=== PATIENT | male | born 1980 | race Hispanic/Latino ===

== ENCOUNTER 2019-10-11 19:24 | Inpatient (IN) | payer OTHER ==
[~2019-10-11] VITALS: Ht 180.3 cm; Wt 115.3 kg
[~2019-10-11 19:24] MED LIST: ERGOCALCIFEROL (VITAMIN D2) 50,000 UNIT CAPSULE PO SCH
[2019-10-11] MEDS ORDERED: ONDANSETRON HCL 4 MG/2 ML VIAL ONE (19:49)
[2019-10-11] MEDS ORDERED: ACETAMINOPHEN EXTRA STRENGTH 500 MG TABLET ONE (19:49)
[2019-10-11] MEDS ORDERED: SODIUM CHLORIDE 0.9% 1000ML 1,000 ML IV ONE (19:50)
[2019-10-11 20:01] LABS: BASOPHILS % (AUTO) 0.2 % (0.0-5.0); HEMATOCRIT 50.9 % (42-54); LYMPHOCYTES % (AUTO) 31.9 % (21.0-51.0); MEAN CORPUSCULAR HGB CONC 35.8 g/dL (32.0-36.0); MEAN CORPUSCULAR VOLUME 81.1 fL (79-99); MONOCYTES % (AUTO) 9.3 % (3.0-13.0); NEUTROPHILS % (AUTO) 58.2 % (40.0-77.0); PLATELET COUNT (AUTO) 179 K/uL (130-400); RED BLOOD CELL COUNT(AUTO) 6.28 MIL/uL (4.50-6.20); RED CELL DISTRIBUTION WIDTH 11.8 % (11.0-15.5); WHITE BLOOD COUNT (AUTO) 4.7 K/uL (4.8-10.8)
[2019-10-11 20:12] LABS: CREATININE 0.8 mg/dL (0.5-1.5); POTASSIUM 3.7 mmol/L (3.5-5.1)
[2019-10-11 20:17] LABS: ALBUMIN 3.7 g/dL (3.5-5.0); BILIRUBIN,TOTAL 0.6 mg/dL (0.2-1.0); TOTAL PROTEIN, SERUM 8.2 g/dL (6.0-8.3)
[2019-10-11] MEDS ORDERED: AZITHROMYCIN 500MG+NS 250ML 250 ML IV ONE (21:28)
[2019-10-11] MEDS ORDERED: DEXAMETHASONE SOD PHOSPHATE 10MG/ML 1ML VIAL ONE (21:28)
[2019-10-11] MEDS ORDERED: CEFTRIAXONE SODIUM 1 GM ONE (21:28)
[2019-10-11] MEDS: CEFTRIAXONE SODIUM 1 GM IVP SCH (23:15)
[2019-10-11] MEDS ORDERED: DOXYCYCLINE 100MG+NS 250ML IV SCH (23:15)
[2019-10-11] MEDS ORDERED: HYDRALAZINE HCL 20 MG/ML VIAL IV PRN (23:15)
[2019-10-11] MEDS ORDERED: ERGOCALCIFEROL (VITAMIN D2) 50,000 UNIT CAPSULE ONE (23:50)
[2019-10-12] VITALS (7 sets, daily range): BP systolic 106–131; BP diastolic 50–78
--- NOTE | 2019-10-12 04:22 | NUR ---
END OF SHIFT NOTE PATIENT RESTING COMFORTABLY ON 2L NASAL CANNULA SATTING AT 100%. NO SIGNS OR SYMPTOMS OF RESPIRATORY DISTRESS AT THIS TIME. PATIENT STATES HE FEELS MUCH BETTER NOW THATHIS TEMPERATURE IS DOWN RI 98 DEGREES. WILL CONTINUE TO MONITOR.
[2019-10-12 06:01] LABS: HEMOGLOBIN A1C 9.7 % (4.0-6.0)
[2019-10-12] MEDS: CEFTRIAXONE SODIUM 1 GM IVP SCH ×2 (06:30→12:06)
[2019-10-12] MEDS: INSULIN HUMULIN R 100 UNIT/ML 3ML SQ SCH ×4 (06:32→21:29)
[2019-10-12] MEDS: ASCORBIC ACID 500 MG TAB PO SCH (09:07)
[2019-10-12] MEDS: FAMOTIDINE/PF 20 MG/2 ML VIAL IV SCH ×2 (09:07→21:27)
[2019-10-12] MEDS: ZINC SULFATE 220 CAPSULE PO SCH (09:07)
[2019-10-12] MEDS: METHYLPREDNISOLONE SOD SUCC 40MG/ML 1ML IVP SCH ×2 (09:07→15:03)
[2019-10-12] MEDS: ACETYLCYSTEINE 600 MG CAPSULE PO SCH ×2 (09:07→21:27)
[2019-10-12] MEDS: DOXYCYCLINE 100MG+NS 250ML 250 ML IV SCH ×2 (09:08→21:27)
[2019-10-12] MEDS: ENOXAPARIN SODIUM 40 MG/0.4 ML SYRINGE SQ SCH (09:08)
--- NOTE | 2019-10-12 14:05 | NUR ---
DC PLAN CALLED PATIENT. IN COVID UNIT POSITIVE. PATIENT LIVES WITH PARENTS. INDEPENDENT ABLE TO PERFORM ADL'S. NO SERVICES OR DME'S. FEELS SAFE TO RETURN HOME. Addendum: 10/12/19 at 1406 by YOSVANY GARAY RN CM Amended: Links added.
[2019-10-12] MEDS: ACETAMINOPHEN EXTRA STRENGTH 500 MG TABLET PO PRN ×2 (15:50→21:52)
[2019-10-12] MEDS ORDERED: PHARMACY COMMUNICATION MISC SCH (16:00)
[2019-10-12] MEDS ORDERED: COMPOUND IV REFRIGERATED 1 EACH IVSOLN MISC PRN (17:45)
[2019-10-12] MEDS ORDERED: REMDESIVIR (EUA) 520 200 MG in SODIUM CHLORIDE 0.9% 250 ML IV ONE (19:00)
[2019-10-12] MEDS ORDERED: METFORMIN HCL 500 MG TABLET ONE (21:20)
[2019-10-12] MEDS: INSULIN GLARGINE 100 UNITS/ML 10 ML VIAL SQ SCH (21:28)
[2019-10-12] MEDS ORDERED: SODIUM CHLORIDE 0.9% 250 ML IV ONE (23:48)
[2019-10-13 03:18] VITALS: BP 115/56
[2019-10-13 06:05] LABS: BASOPHILS % (AUTO) 0.1 % (0.0-5.0); EOSINOPHILS % (AUTO) 1.7 % (0.0-8.0); HEMATOCRIT 46.5 % (42-54); LYMPHOCYTES % (AUTO) 17.4 % (21.0-51.0); MEAN CORPUSCULAR HEMOGLOBIN 28.7 pg (27.0-33.0); MEAN CORPUSCULAR HGB CONC 35.3 g/dL (32.0-36.0); MEAN CORPUSCULAR VOLUME 81.4 fL (79-99); MONOCYTES % (AUTO) 8.3 % (3.0-13.0); NEUTROPHILS % (AUTO) 72.2 % (40.0-77.0); PLATELET COUNT (AUTO) 205 K/uL (130-400); RED BLOOD CELL COUNT(AUTO) 5.71 MIL/uL (4.50-6.20); RED CELL DISTRIBUTION WIDTH 11.9 % (11.0-15.5)
[2019-10-13 06:17] LABS: CREATININE 0.7 mg/dL (0.5-1.5); CRP QUANTITATIVE 35.8 mg/L (0.00-9.0); POTASSIUM 3.8 mmol/L (3.5-5.1)
[2019-10-13] MEDS: INSULIN HUMULIN R 100 UNIT/ML 3ML SQ SCH ×4 (06:48→22:21)
[2019-10-13 08:00] VITALS: BP 121/68
[2019-10-13] MEDS: METFORMIN HCL 500 MG TABLET PO SCH ×3 (09:00→16:56)
[2019-10-13] MEDS: ENOXAPARIN SODIUM 40 MG/0.4 ML SYRINGE SQ SCH (09:00)
[2019-10-13] MEDS: ASCORBIC ACID 500 MG TAB PO SCH (09:00)
[2019-10-13] MEDS: ZINC SULFATE 220 CAPSULE PO SCH (09:00)
[2019-10-13] MEDS: DEXAMETHASONE 4 MG TAB PO SCH (09:00)
[2019-10-13] MEDS: CEFTRIAXONE SODIUM 1 GM IVP SCH ×2 (09:00→22:15)
[2019-10-13] MEDS: GLIPIZIDE XL 2.5MG TAB PO SCH ×2 (09:00→16:56)
[2019-10-13] MEDS: DOXYCYCLINE 100MG+NS 250ML 250 ML IV SCH ×2 (09:00→22:15)
[2019-10-13] MEDS: FAMOTIDINE/PF 20 MG/2 ML VIAL IV SCH ×2 (09:00→22:14)
[2019-10-13] MEDS: ACETYLCYSTEINE 600 MG CAPSULE PO SCH ×2 (09:00→22:15)
[2019-10-13 11:30] VITALS: BP 103/56
[2019-10-13] MEDS: ACETAMINOPHEN EXTRA STRENGTH 500 MG TABLET PO PRN ×2 (11:49→22:22)
[2019-10-13 15:30] VITALS: BP 112/59
[2019-10-13] MEDS ORDERED: REMDESIVIR (EUA) 520 100 MG VIAL IV ONE (18:37)
[2019-10-13] MEDS: REMDESIVIR (INVESTIGATIONAL) 100 MG in SODIUM CHLORIDE 0.9% 250 ML IV SCH (18:40)
[2019-10-13] MEDS: REMDESIVIR (EUA) 520 100 MG in SODIUM CHLORIDE 0.9% 250 ML IV SCH (19:00)
[2019-10-13 19:35] VITALS: BP 113/64
[2019-10-13] MEDS: INSULIN GLARGINE 100 UNITS/ML 10 ML VIAL SQ SCH (22:21)
[2019-10-13 23:08] VITALS: BP 118/70
[2019-10-14] MEDS: METFORMIN HCL 500 MG TABLET PO SCH ×2 (00:08→07:30)
[2019-10-14 03:42] VITALS: BP 100/59
[2019-10-14 05:36] LABS: BASOPHILS % (AUTO) 0.1 % (0.0-5.0); LYMPHOCYTES % (AUTO) 25.8 % (21.0-51.0); MEAN CORPUSCULAR HEMOGLOBIN 28.7 pg (27.0-33.0); MEAN CORPUSCULAR HGB CONC 35.4 g/dL (32.0-36.0); MONOCYTES % (AUTO) 9.8 % (3.0-13.0); PLATELET COUNT (AUTO) 217 K/uL (130-400); RED BLOOD CELL COUNT(AUTO) 5.68 MIL/uL (4.50-6.20); RED CELL DISTRIBUTION WIDTH 11.9 % (11.0-15.5); WHITE BLOOD COUNT (AUTO) 6.8 K/uL (4.8-10.8)
[2019-10-14 05:55] LABS: ALBUMIN 3.2 g/dL (3.5-5.0); BILIRUBIN,TOTAL 0.4 mg/dL (0.2-1.0); CREATININE 0.7 mg/dL (0.5-1.5); POTASSIUM 3.7 mmol/L (3.5-5.1)
[2019-10-14] MEDS: INSULIN HUMULIN R 100 UNIT/ML 3ML SQ SCH ×4 (06:39→21:52)
[2019-10-14 08:00] VITALS: BP 124/69
[2019-10-14] MEDS ORDERED: METFORMIN HCL 850 MG TABLET ONE (08:57)
[2019-10-14] MEDS: CEFTRIAXONE SODIUM 1 GM IVP SCH ×2 (09:01→21:27)
[2019-10-14] MEDS: FAMOTIDINE/PF 20 MG/2 ML VIAL IV SCH ×2 (09:01→21:27)
[2019-10-14] MEDS: ENOXAPARIN SODIUM 40 MG/0.4 ML SYRINGE SQ SCH (09:02)
[2019-10-14] MEDS: DOXYCYCLINE 100MG+NS 250ML 250 ML IV SCH ×2 (09:02→21:27)
[2019-10-14] MEDS: ASCORBIC ACID 500 MG TAB PO SCH (09:02)
[2019-10-14] MEDS: DEXAMETHASONE 4 MG TAB PO SCH (09:02)
[2019-10-14] MEDS: ACETYLCYSTEINE 600 MG CAPSULE PO SCH ×2 (09:02→21:27)
[2019-10-14] MEDS: ZINC SULFATE 220 CAPSULE PO SCH (09:02)
[2019-10-14] MEDS: GLIPIZIDE XL 2.5MG TAB PO SCH ×2 (09:03→17:11)
[2019-10-14 11:30] VITALS: BP 127/69
[2019-10-14 15:30] VITALS: BP 121/69
[2019-10-14] MEDS: METFORMIN HCL 850 MG TABLET PO SCH (17:10)
[2019-10-14] MEDS ORDERED: LOPERAMIDE HCL 2 MG CAP PO PRN (17:30)
[2019-10-14] MEDS: REMDESIVIR (INVESTIGATIONAL) 100 MG in SODIUM CHLORIDE 0.9% 250 ML IV SCH (18:16)
[2019-10-14] MEDS ORDERED: LOPERAMIDE HCL 2 MG CAP PO SCH (18:30)
[2019-10-14] MEDS ORDERED: REMDESIVIR (EUA) 520 100 MG VIAL IV ONE (18:40)
[2019-10-14 19:00] VITALS: BP 120/66
[2019-10-14] MEDS: REMDESIVIR (EUA) 520 100 MG in SODIUM CHLORIDE 0.9% 250 ML IV SCH (19:00)
[2019-10-14] MEDS: INSULIN GLARGINE 100 UNITS/ML 10 ML VIAL SQ SCH (21:50)
[2019-10-14 23:00] VITALS: BP 109/65
[2019-10-15 03:57] VITALS: BP 110/60
[2019-10-15] MEDS: INSULIN HUMULIN R 100 UNIT/ML 3ML SQ SCH ×4 (06:47→22:11)
[2019-10-15] MEDS: INSULIN LISPRO 100 UNIT/ML 3ML SQ SCH ×3 (06:48→17:08)
[2019-10-15 07:00] VITALS: BP 129/78
--- NOTE | 2019-10-15 08:00 | NUR ---
AM ASSESSMENT PT AWAKE, ALERT, AND ORIENTED. DENIES CHEST PAIN OR DISCOMFORT, DENIES SOB OR LABORED RESPIRATIONS. PT ON ROOM AIR, AMBULATES IN ROOM, GAIT STEADY.
[2019-10-15] MEDS: FAMOTIDINE/PF 20 MG/2 ML VIAL IV SCH ×2 (08:13→22:08)
[2019-10-15] MEDS: DEXAMETHASONE 4 MG TAB PO SCH (08:14)
[2019-10-15] MEDS: METFORMIN HCL 850 MG TABLET PO SCH ×2 (08:14→17:09)
[2019-10-15] MEDS: ZINC SULFATE 220 CAPSULE PO SCH (08:15)
[2019-10-15] MEDS: ASCORBIC ACID 500 MG TAB PO SCH (08:15)
[2019-10-15] MEDS: ACETYLCYSTEINE 600 MG CAPSULE PO SCH ×2 (08:15→22:08)
[2019-10-15] MEDS: ENOXAPARIN SODIUM 40 MG/0.4 ML SYRINGE SQ SCH (08:16)
[2019-10-15 11:00] VITALS: BP 116/66
[2019-10-15 16:00] VITALS: BP 121/67
[2019-10-15] MEDS: REMDESIVIR (EUA) 520 100 MG in SODIUM CHLORIDE 0.9% 250 ML IV SCH (19:00)
[2019-10-15 20:53] VITALS: BP 136/70
--- NOTE | 2019-10-15 22:00 | NUR ---
PT'S VITAL SIGNS STABLE DENIES ANY PAIN DENIES SOB PT VERBALIZES HE FEELS "READY TO GO HOME " PATIENT AWARE PLAN FOR D/C IS TOMORROW CALL LIGHT WITHIN REACH WILL CONTINUE TO MONITOR
[2019-10-15] MEDS: INSULIN GLARGINE 100 UNITS/ML 10 ML VIAL SQ SCH (22:11)
[2019-10-16] VITALS: BP 121/71
[2019-10-16 05:08] VITALS: BP 120/63
[2019-10-16] MEDS: INSULIN HUMULIN R 100 UNIT/ML 3ML SQ SCH ×2 (06:22→11:44)
[2019-10-16] MEDS: INSULIN LISPRO 100 UNIT/ML 3ML SQ SCH ×2 (06:23→11:43)
[2019-10-16] MEDS: ASCORBIC ACID 500 MG TAB PO SCH (08:40)
[2019-10-16] MEDS: ZINC SULFATE 220 CAPSULE PO SCH (08:40)
[2019-10-16] MEDS: ACETYLCYSTEINE 600 MG CAPSULE PO SCH (08:40)
[2019-10-16] MEDS: METFORMIN HCL 850 MG TABLET PO SCH (08:40)
[2019-10-16] MEDS: DEXAMETHASONE 4 MG TAB PO SCH (08:41)
[2019-10-16] MEDS: FAMOTIDINE/PF 20 MG/2 ML VIAL IV SCH (08:41)
[2019-10-16] MEDS: ENOXAPARIN SODIUM 40 MG/0.4 ML SYRINGE SQ SCH (08:41)
[2019-10-16 08:48] VITALS: BP 107/61
[2019-10-16] MEDS ORDERED: METF850T PO (10:01)
[2019-10-16] MEDS ORDERED: INSU200I SQ (10:01)
[2019-10-16] MEDS ORDERED: DEXA6TAB PO (10:01)
[2019-10-16] MEDS ORDERED: INSU3INS3 SQ (10:01)
[2019-10-16] MEDS ORDERED: APIX2.5T PO (10:01)
[2019-10-16 11:34] VITALS: BP 118/70
== END 2019-10-16 12:40 | disposition home or self-care (01) | DRG 177 ==
LOC: EDH 19:24 → EDHIP 23:02 → 2AH 10-12 00:35
PROVIDERS: ADMIT Internal Medicine; ATTEND Internal Medicine
PROC: XW033E5 Introduction of Remdesivir Anti-infective into Peripheral Vein, Percutaneous Approach, New Technology Group 5 (ICD-10-PCS; 2019-10-12)
PROC: XW13325 Transfusion of Convalescent Plasma (Nonautologous) into Peripheral Vein, Percutaneous Approach, New Technology Group 5 (ICD-10-PCS; principal; 2019-10-13)
DX: U07.1 COVID-19 (principal); J12.89 Other viral pneumonia; J96.01 Acute respiratory failure with hypoxia; E87.1 Hypo-osmolality and hyponatremia; E11.65 Type 2 diabetes mellitus with hyperglycemia
CPT/HCPCS: 36415; 36430; 71045; 80048; 80053; 82550; 82728; 82948; 83036; 83605; 83615; 84145; 84484; 85025; 85378; 86140; 86850; 86900; 86901; 86927; 87040; 87486; 87581; 87633; 87798; 93005; G0378; J0456; J0696; J1100; J1650; J1815; J2405; J2920; J3490; J7030; J7050; J8540

== ENCOUNTER 2022-04-06 21:20 | Emergency (ER) | payer OTHER ==
[~2022-04-06] VITALS: Ht 180.3 cm; Wt 122.9 kg
[~2022-04-06 21:20] MED LIST changes: +APIX2.5T PO; +DEXA6TAB PO; -ERGOCALCIFEROL (VITAMIN D2) 50,000 UNIT CAPSULE PO SCH; +INSU200I SQ; +INSU3INS3 SQ; +METF850T PO
[2022-04-06 22:42] LABS: BASOPHILS % (AUTO) 0.4 % (0.0-5.0); EOSINOPHILS % (AUTO) 0.1 % (0.0-8.0); HEMATOCRIT 46.9 % (42-54); LYMPHOCYTES % (AUTO) 12.5 % (21.0-51.0); MEAN CORPUSCULAR HGB CONC 34.5 g/dL (32.0-36.0); MEAN CORPUSCULAR VOLUME 83.9 fL (79-99); MONOCYTES % (AUTO) 7.4 % (3.0-13.0); PLATELET COUNT (AUTO) 194 K/uL (130-400); RED BLOOD CELL COUNT(AUTO) 5.59 MIL/uL (4.50-6.20); RED CELL DISTRIBUTION WIDTH 12.3 % (11.0-15.5); WHITE BLOOD COUNT (AUTO) 17.7 K/uL (4.8-10.8)
[2022-04-06] MEDS ORDERED: IBUP-2070 PO (22:56)
[2022-04-06] MEDS ORDERED: CEPH500B PO (22:56)
[2022-04-06] MEDS ORDERED: SULF1TAB42 PO (22:56)
[2022-04-06 23:04] LABS: APPEARANCE,URINE CLEAR (CLEAR); BILIRUBIN,URINE NEGATIVE (NEGATIVE); COLOR,URINE YELLOW (YELLOW); GLUCOSE, URINE (UA) >=1000 mg/dL (NEGATIVE); KETONES,URINE 150 mg/dL (NEGATIVE); LEUKOCYTE ESTERASE ,URINE NEGATIVE Leu/uL (NEGATIVE); NITRATE,URINE NEGATIVE (NEGATIVE); OCCULT BLOOD,URINE NEGATIVE (NEGATIVE); PROTEIN,URINE 50 mg/dL (NEGATIVE); UROBILINOGEN,URINE 0.2 mg/dL (0.2-1.0)
[2022-04-06 23:05] LABS: MUCUS,URINE RARE LPF (None Seen); WBC,URINE 0-1 /HPF (0-1)
[2022-04-06 23:17] VITALS: BP 156/85
== END 2022-04-06 23:28 | disposition home or self-care (01) ==
LOC: EDH 21:20
DX: N49.2 Inflammatory disorders of scrotum (principal); D72.829 Elevated white blood cell count, unspecified; R73.9 Hyperglycemia, unspecified; Z79.4 Long term (current) use of insulin; Z79.899 Other long term (current) drug therapy; Z79.1 Long term (current) use of non-steroidal anti-inflammatories (NSAID)
CPT/HCPCS: 36415; 76870; 81001; 82948; 85025

== ENCOUNTER 2022-04-13 08:14 | Emergency (ER) | payer OTHER ==
[~2022-04-13] VITALS: Ht 180.3 cm; Wt 122.5 kg
[~2022-04-13 08:14] MED LIST changes: +CEPH500B PO; +IBUP-2070 PO; +SULF1TAB42 PO
[2022-04-13] MEDS ORDERED: ONDANSETRON ODT 4MG TAB SL ONE (08:30)
[2022-04-13] MEDS ORDERED: LIDOCAINE 1%-EPI 1:100,000 20 ML VIAL IJ SCH (08:30)
[2022-04-13] MEDS ORDERED: HYDROMORPHONE 2 MG VIAL (2MG/ML) IM ONE (08:30)
[2022-04-13] MEDS ORDERED: LIDOCAINE HCL 1% 20 ML VIAL ONE (08:56)
[2022-04-13] MEDS ORDERED: HYDROMORPHONE 1 MG INJ ONE (09:30)
[2022-04-13] MEDS ORDERED: METFORMIN HCL 500 MG TAB.SR.24H PO SCH (09:30)
[2022-04-13 11:00] VITALS: BP 118/74
[2022-04-13] MEDS ORDERED: OXYC-38 PO (11:54)
[2022-04-13] MEDS ORDERED: METF-444 PO (11:54)
[2022-04-13] MEDS ORDERED: SULF1TAB42 PO (11:54)
[2022-04-13] MEDS ORDERED: IBUP-2071 PO (11:54)
== END 2022-04-13 12:06 | disposition home or self-care (01) ==
LOC: EDH 08:14
DX: L02.214 Cutaneous abscess of groin (principal); E11.65 Type 2 diabetes mellitus with hyperglycemia; Z79.1 Long term (current) use of non-steroidal anti-inflammatories (NSAID); Z79.4 Long term (current) use of insulin; Z79.899 Other long term (current) drug therapy
CPT/HCPCS: 99283; 10060; 82948; J1170 ×2

== ENCOUNTER → 2022-05-17 | Outpatient (CLI) | payer OTHER ==
[~2022-05-17] MED LIST changes: +IBUP-2071 PO; +METF-444 PO; +OXYC-38 PO
[2022-05-17 12:54] LABS: BASOPHILS % (AUTO) 0.9 % (0.0-5.0); EOSINOPHILS % (AUTO) 3.9 % (0.0-8.0); HEMATOCRIT 49.4 % (42-54); LYMPHOCYTES % (AUTO) 51.6 % (21.0-51.0); MEAN CORPUSCULAR HEMOGLOBIN 28.3 pg (27.0-33.0); MEAN CORPUSCULAR HGB CONC 34.2 g/dL (32.0-36.0); MEAN CORPUSCULAR VOLUME 82.6 fL (79-99); MONOCYTES % (AUTO) 6.8 % (3.0-13.0); NEUTROPHILS % (AUTO) 36.8 % (40.0-77.0); PLATELET COUNT (AUTO) 240 K/uL (130-400); RED BLOOD CELL COUNT(AUTO) 5.98 MIL/uL (4.50-6.20); RED CELL DISTRIBUTION WIDTH 12.1 % (11.0-15.5); WHITE BLOOD COUNT (AUTO) 5.6 K/uL (4.8-10.8)
[2022-05-17 13:11] LABS: HEMOGLOBIN A1C 10.4 % (4.0-6.0)
[2022-05-17 13:46] LABS: ALBUMIN 4.3 g/dL (3.5-5.0); CREATININE 0.8 mg/dL (0.5-1.5); THYROID STIMULATING HORMONE 1.32 uIU/mL (0.36-3.74)
[2022-05-17 13:58] LABS: APPEARANCE,URINE CLEAR (CLEAR); BILIRUBIN,URINE NEGATIVE (NEGATIVE); COLOR,URINE YELLOW (YELLOW); GLUCOSE, URINE (UA) 300 mg/dL (NEGATIVE); KETONES,URINE NEGATIVE (NEGATIVE); LEUKOCYTE ESTERASE ,URINE NEGATIVE Leu/uL (NEGATIVE); NITRATE,URINE NEGATIVE (NEGATIVE); OCCULT BLOOD,URINE NEGATIVE (NEGATIVE); PH,URINE 5.5 (5.0-8.0); PROTEIN,URINE 30 mg/dL (NEGATIVE); UROBILINOGEN,URINE 0.2 mg/dL (0.2-1.0)
[2022-05-17 14:07] LABS: BACTERIA,URINE RARE /HPF (None Seen); MUCUS,URINE RARE LPF (None Seen); WBC,URINE 0-1 /HPF (0-1)
== END | disposition home or self-care (01) ==
LOC: LAB 12:04
PROVIDERS: ATTEND Nurse Practitioner Family
DX: Z00.01 Encounter for general adult medical examination with abnormal findings (principal); Z12.5 Encounter for screening for malignant neoplasm of prostate; R53.82 Chronic fatigue, unspecified
CPT/HCPCS: 36415; 80053; 80061; 81001; 82306; 82607; 83036; 84153; 84402; 84403; 84443; 85025; 87088

== ENCOUNTER → 2022-08-15 | Outpatient (CLI) | payer OTHER ==
[2022-08-15 08:40] LABS: BASOPHILS % (AUTO) 0.3 % (0.0-5.0); EOSINOPHILS % (AUTO) 1.7 % (0.0-8.0); HEMATOCRIT 48.4 % (42-54); MEAN CORPUSCULAR HGB CONC 33.9 g/dL (32.0-36.0); MEAN CORPUSCULAR VOLUME 82.6 fL (79-99); MONOCYTES % (AUTO) 7.1 % (3.0-13.0); NEUTROPHILS % (AUTO) 47.7 % (40.0-77.0); PLATELET COUNT (AUTO) 247 K/uL (130-400); RED BLOOD CELL COUNT(AUTO) 5.86 MIL/uL (4.50-6.20); RED CELL DISTRIBUTION WIDTH 12.3 % (11.0-15.5); WHITE BLOOD COUNT (AUTO) 5.7 K/uL (4.8-10.8)
[2022-08-15 09:12] LABS: ALBUMIN 4.5 g/dL (3.5-5.0); CREATININE 0.9 mg/dL (0.5-1.5); POTASSIUM 3.7 mmol/L (3.5-5.1); THYROID STIMULATING HORMONE 1.85 uIU/mL (0.36-3.74)
== END | disposition home or self-care (01) ==
LOC: LAB 07:57
PROVIDERS: ATTEND Nurse Practitioner Family
DX: E11.9 Type 2 diabetes mellitus without complications (principal); E78.1 Pure hyperglyceridemia
CPT/HCPCS: 36415; 80053; 80061; 83036; 84403; 84443; 85025

== ENCOUNTER → 2022-11-28 | Outpatient (CLI) | payer OTHER ==
[2022-11-28 15:05] LABS: BASOPHILS # (AUTO) 0.07 K/uL (0.00-0.20); EOSINOPHILS # (AUTO) 0.32 K/uL (0.00-0.70); EOSINOPHILS % (AUTO) 4.7 % (0.0-8.0); HEMATOCRIT 48.9 % (42-54); IMMATURE GRANULOCYTE ABSOLUTE 0.02 K/uL (0-1); LYMPHOCYTES # (AUTO) 3.2 K/uL (1.0-4.8); LYMPHOCYTES % (AUTO) 47.1 % (21.0-51.0); MEAN CORPUSCULAR HEMOGLOBIN 28.3 pg (27.0-33.0); MEAN CORPUSCULAR HGB CONC 33.9 g/dL (32.0-36.0); MEAN CORPUSCULAR VOLUME 83.4 fL (79-99); MONOCYTES # (AUTO) 0.5 K/uL (0.1-1.0); MONOCYTES % (AUTO) 7.7 % (3.0-13.0); NEUTROPHILS # (AUTO) 2.7 K/uL (1.8-7.7); NEUTROPHILS % (AUTO) 39.2 % (40.0-77.0); PLATELET COUNT (AUTO) 289 K/uL (130-400); RED BLOOD CELL COUNT(AUTO) 5.86 MIL/uL (4.50-6.20); RED CELL DISTRIBUTION WIDTH 12.7 % (11.0-15.5); WHITE BLOOD COUNT (AUTO) 6.8 K/uL (4.8-10.8)
[2022-11-28 15:28] LABS: ALBUMIN 4.2 g/dL (3.5-5.0); BILIRUBIN,TOTAL 0.5 mg/dL (0.2-1.0); CREATININE 0.9 mg/dL (0.5-1.5); POTASSIUM 4.2 mmol/L (3.5-5.1); THYROID STIMULATING HORMONE 1.31 uIU/mL (0.36-3.74); TOTAL PROTEIN, SERUM 7.9 g/dL (6.0-8.3)
[2022-11-28 15:32] LABS: HEMOGLOBIN A1C 5.9 % (4.0-6.0)
== END | disposition home or self-care (01) ==
LOC: LAB 14:37
PROVIDERS: ATTEND Nurse Practitioner Family
DX: E11.9 Type 2 diabetes mellitus without complications (principal); E78.1 Pure hyperglyceridemia
CPT/HCPCS: 36415; 80053; 80061; 83036; 84443; 85025

== ENCOUNTER → 2023-01-22 | Outpatient (CLI) | payer OTHER | END | disposition home or self-care (01) | LOC: LAB 10:25 | PROVIDERS: ATTEND Hospitalist | DX: Z20.822 Contact with and (suspected) exposure to COVID-19 (principal) | CPT/HCPCS: 87426 ==

== ENCOUNTER → 2024-05-31 | Outpatient (CLI) | payer OTHER ==
[~2024-05-31] MED LIST changes: -APIX2.5T PO; -CEPH500B PO; -DEXA6TAB PO; -IBUP-2070 PO; -IBUP-2071 PO; -INSU200I SQ; +LACT10PA5 PO; +LISI5TAB21 PO; -METF850T PO; -OXYC-38 PO; -SULF1TAB42 PO
[2024-05-31 13:43] LABS: BASOPHILS # (AUTO) 0.05 K/uL (0.00-0.20); BASOPHILS % (AUTO) 0.8 % (0.0-5.0); EOSINOPHILS # (AUTO) 0.16 K/uL (0.00-0.70); EOSINOPHILS % (AUTO) 2.5 % (0.0-8.0); HEMATOCRIT 49.1 % (42-54); IMMATURE GRANULOCYTE ABSOLUTE 0.02 K/uL (0-1); LYMPHOCYTES # (AUTO) 2.8 K/uL (1.0-4.8); LYMPHOCYTES % (AUTO) 43.7 % (21.0-51.0); MEAN CORPUSCULAR HEMOGLOBIN 28.7 pg (27.0-33.0); MEAN CORPUSCULAR HGB CONC 34.4 g/dL (32.0-36.0); MEAN CORPUSCULAR VOLUME 83.4 fL (79-99); MONOCYTES # (AUTO) 0.4 K/uL (0.1-1.0); NEUTROPHILS # (AUTO) 2.9 K/uL (1.8-7.7); NEUTROPHILS % (AUTO) 45.7 % (40.0-77.0); PLATELET COUNT (AUTO) 307 K/uL (130-400); RED BLOOD CELL COUNT(AUTO) 5.89 MIL/uL (4.50-6.20); RED CELL DISTRIBUTION WIDTH 12.1 % (11.0-15.5); WHITE BLOOD COUNT (AUTO) 6.3 K/uL (4.8-10.8)
[2024-05-31 13:55] LABS: APPEARANCE,URINE CLEAR (CLEAR); BILIRUBIN,URINE NEGATIVE (NEGATIVE); COLOR,URINE COLORLESS (YELLOW); GLUCOSE, URINE (UA) >=1000 mg/dL (NEGATIVE); KETONES,URINE 10 mg/dL (NEGATIVE); LEUKOCYTE ESTERASE ,URINE NEGATIVE Leu/uL (NEGATIVE); NITRATE,URINE NEGATIVE (NEGATIVE); OCCULT BLOOD,URINE NEGATIVE (NEGATIVE); PH,URINE 5.5 (5.0-8.0); PROTEIN,URINE NEGATIVE (NEGATIVE); UROBILINOGEN,URINE 0.2 mg/dL (0.2-1.0)
[2024-05-31 13:59] LABS: ADD UA MICROSCOPIC YES
[2024-05-31 14:05] LABS: ALBUMIN 4.5 g/dL (3.5-5.0); BILIRUBIN,DIRECT 0.1 mg/dL (0.0-0.3); BILIRUBIN,TOTAL 0.4 mg/dL (0.2-1.0); CREATININE 0.8 mg/dL (0.5-1.3); MAGNESIUM 1.9 mg/dL (1.80-2.40); POTASSIUM 4.1 mmol/L (3.5-5.1); TOTAL PROTEIN, SERUM 8.6 g/dL (6.0-8.3)
[2024-05-31 14:08] LABS: HEMOGLOBIN A1C 11.8 % (4.0-6.0)
[2024-05-31 14:12] LABS: RBC,URINE 0-1 /HPF (0-1)
== END | disposition home or self-care (01) ==
LOC: LAB 12:42
PROVIDERS: ATTEND Nurse Practitioner Family
DX: E11.9 Type 2 diabetes mellitus without complications (principal); K76.0 Fatty (change of) liver, not elsewhere classified; E29.1 Testicular hypofunction; R53.82 Chronic fatigue, unspecified; E55.9 Vitamin D deficiency, unspecified
CPT/HCPCS: 36415; 80053; 80061; 80076; 81001; 82140; 82306; 82607; 83001; 83036; 83735; 84403; 84443; 85025; 87086

== ENCOUNTER → 2024-06-08 | Outpatient (CLI) | payer OTHER ==
--- NOTE | 2024-06-08 09:39 | HMCIMG ---
US ABDOMINAL RUQ\E\LTD HISTORY: Fatty liver COMPARISON: None TECHNIQUE: Right upper quadrant abdominal ultrasound study was performed. FINDINGS: Liver measures 18.8 cm. There is possible gallbladder polyp measuring 7 mm. The visualized portion of the pancreas is within normal limits. Liver is echogenic consistent with liver parenchymal disease. No gallstone is seen. Common duct measures 5 mm. No evidence of gallbladder wall thickening is seen. Right kidney measures 10.4 x 7.2 x 5.6 cm. No hydronephrosis is seen of the right kidney. IMPRESSION: 1. Possible gallbladder polyp measuring 7 mm. No gallstones or ductal dilatation is seen. 2. No hydronephrosis is seen.
== END | disposition home or self-care (01) ==
LOC: RAH 09:01
PROVIDERS: ATTEND Nurse Practitioner Family
DX: K76.0 Fatty (change of) liver, not elsewhere classified (principal); K76.89 Other specified diseases of liver
CPT/HCPCS: 76705

== ENCOUNTER → 2024-10-19 | Outpatient (CLI) | payer OTHER ==
[2024-10-21 14:12] LABS: ERYTHROPOIETIN 7.1 mIU/mL (2.6-18.5)
== END | disposition home or self-care (01) ==
LOC: LAB 08:48
PROVIDERS: ATTEND Internal Medicine
DX: D75.89 Other specified diseases of blood and blood-forming organs (principal)
CPT/HCPCS: 36415; 82668; 85060; 88184; 88185; 88189

== ENCOUNTER → 2025-01-17 | Outpatient (CLI) | payer OTHER ==
[2025-01-17 12:48] LABS: IMMATURE GRANULOCYTE ABSOLUTE 0.03 K/uL (0-1); NUCLEATED RED BLOOD CELLS 0.0 % (0.0-0.19); PLATELET COUNT (AUTO) 286 K/uL (130-400); RED BLOOD CELL COUNT(AUTO) 6.57 MIL/uL (4.50-6.20); RED CELL DISTRIBUTION WIDTH 12.3 % (11.0-15.5); WHITE BLOOD COUNT (AUTO) 7.5 K/uL (4.8-10.8)
[2025-01-17 13:00] LABS: APPEARANCE,URINE CLEAR (CLEAR); GLUCOSE, URINE (UA) >=1000 mg/dL (NEGATIVE); LEUKOCYTE ESTERASE ,URINE NEGATIVE Leu/uL (NEGATIVE); NITRATE,URINE NEGATIVE (NEGATIVE); OCCULT BLOOD,URINE NEGATIVE (NEGATIVE)
[2025-01-17 13:15] LABS: ADD UA MICROSCOPIC YES
[2025-01-17 13:26] LABS: ASPARTATE AMINOTRANSFERASE 41.0 U/L (10-37); CREATININE 0.7 mg/dL (0.5-1.3); GLOMERULAR FILTR. RATE CALC 117.0 mL/min (>90); GLUCOSE,RANDOM 138.0 mg/dL (70-105); LDL DIRECT 172.0 mg/dL (0-99); SODIUM SERUM 133.0 mmol/L (136-145); TOTAL PROTEIN, SERUM 8.6 g/dL (6.0-8.3); UREA NITROGEN, BLOOD 21.0 mg/dL (7-18)
== END | disposition home or self-care (01) ==
LOC: LAB 12:12
PROVIDERS: ATTEND Nurse Practitioner Family
DX: Z12.5 Encounter for screening for malignant neoplasm of prostate (principal); E78.1 Pure hyperglyceridemia; E11.9 Type 2 diabetes mellitus without complications; R53.83 Other fatigue; E55.9 Vitamin D deficiency, unspecified; Z11.59 Encounter for screening for other viral diseases
CPT/HCPCS: 36415; 80053; 80061; 81001; 82306; 82607; 83036; 83735; 84153; 84439; 84443; 85025; 86803; 87086